=== PATIENT | male | born 1970 | race Caucasian/White ===

== ENCOUNTER → 2016-09-19 | Outpatient (CLI) | payer BC | END | disposition home or self-care (01) | LOC: LABWHC1 10:01 | PROVIDERS: ATTEND Urology | DX: E83.52 Hypercalcemia (principal) | CPT/HCPCS: 36415; 82310; 83970 ==

== ENCOUNTER 2021-08-18 11:45 | Day surgery (SDC) | payer BC ==
[2021-08-12 16:14] VITALS: BMI 34.7
--- NOTE | 2021-08-17 06:13 | P.GSHP ---
History of Present Illness H&P Date: 08/17/21 Chief Complaint: Right renal colic The patient is a 50-year-old white male with a history of urolithiasis. He recently presented with acute onset of right flank pain radiating to the right lower quadrant and right testicle. He denied dysuria and hematuria, but did experience nausea with vomiting. A CT scan showed a 7 mm right UPJ calculus. He was admitted to [facility] with intractable pain. He underwent right ureteral stent insertion on 08/10/2021. He now comes for cystoscopy, right ureteral stent removal, right ureteroscopy with Holmium laser lithotripsy and possible stone basketing. - Constitutional Constitutional: Denies chills, Denies fever - Gastrointestinal Gastrointestinal: Reports nausea, Reports vomiting - Genitourinary (Male) Genitourinary: Reports flank pain, Reports kidney stones Past Medical History Past Medical History: Diabetes Mellitus, Hyperlipidemia Additional Past Medical History / Comment(s): Current kidney stone. Hx kidney stones X2. History of Any Multi-Drug Resistant Organisms: None Reported Past Surgical History: Cholecystectomy, Orthopedic Surgery Additional Past Surgical History / Comment(s): Right knee arthroscopy. Past Anesthesia/Blood Transfusion Reactions: No Reported Reaction Past Psychological History: No Psychological Hx Reported Smoking Status: Never smoker Past Alcohol Use History: None Reported Past Drug Use History: None Reported - Past Family History Mother Family Medical History: No Reported History Medications and Allergies Home Medications Medication Instructions Recorded Confirmed Type metFORMIN HCL [Glucophage] 1,000 mg PO BID 01/17/15 08/12/21 History Atorvastatin [Lipitor] 40 mg PO HS 02/10/16 08/12/21 History Independence(Unknown Dose) 1 tab PO TID 02/10/16 08/12/21 History Dulaglutide [Trulicity] 3 mg SQ HIDALGO 08/12/21 08/12/21 History glipiZIDE [Glucotrol] 10 mg PO BID 08/12/21 08/12/21 History Allergies Allergy/AdvReac Type Severity Reaction Status Date / Time No Known Allergies Allergy Verified 08/12/21 16:14 Surgical - Exam - General well developed, well nourished, no distress - Neck no masses, trachea midline - Abdomen Abdomen: soft, tender (Mild right-sided tenderness), no masses, no guarding, no rigid, no rebound, no distended - Genitourinary normal penis with no external lesions, testicles non-tender - Psychiatric oriented to time, oriented to person, oriented to place, speech is normal, memory intact Results - Imaging CT scan - abdomen: report reviewed, image reviewed Assessment and Plan (1) Calculus of ureter Status: Acute Code(s): N20.1 - CALCULUS OF URETER SNOMED Code(s): 55385791 Plan: Cystoscopy, right ureteral stent removal, right ureteroscopy with Holmium laser lithotripsy and possible stone basketing. The procedure has been reviewed in detail with the patient. He is aware of potential risks, which include anesthesia, bleeding, infection, and ureteral injury.
[~2021-08-18 11:45] MED LIST: DEXAMETHASONE SOD PHOSPHATE 4 MG/ML 1 ML VIAL IV ONE; HYDROmorphone 0.5 MG/0.5 ML SYRINGE IVP PRN; LACTATED RINGERS 1,000 ML IV SCH; ONDANSETRON 4 MG/2 ML VIAL IVP ONE
--- NOTE | 2021-08-18 12:17 | XR ---
EXAMINATION TYPE: XR KUB DATE OF EXAM: 08/18/2021 Comparison: 02/10/2016 Clinical History: 50-year-old male Right kidney stone. Preoperative exam. Findings: Moderate stool within the right side of the colon. Cholecystectomy clips. Right-sided ureteral stent is in place. There is a 6 mm calcification in the left paramedian pelvis that could be within the bladder. Bowel c ontent largely obscures the right renal shadow. Nonobstructive bowel gas pattern. Impression: 1. Right ureteral stent. Bowel content largely obscures the right renal shadow. 2. A 6 mm calcification in the left paramedian pelvis could be a phlebolith or could be within the bl adder.
[2021-08-18 12:19] LABS: Glucose,Whole Blood 234 mg/dL (75-99)
[2021-08-18] MEDS ORDERED: LACTATED RINGERS 1,000 ML IV ONE (12:23)
[2021-08-18] MEDS ORDERED: MIDAZOLAM 2 MG/2 ML VIAL ONE (14:00)
[2021-08-18] MEDS ORDERED: fentaNYL (PF) 50 MCG/ML 2 ML AMP ONE (14:00)
[2021-08-18] MEDS ORDERED: LIDOCAINE 1% INJ 10MG/ML (20 ML MDV) ONE (14:00)
[2021-08-18] MEDS ORDERED: SUCCINYLCHOLINE CHLORIDE 100 MG/5 ML SYR IV ONE (14:00)
[2021-08-18] MEDS ORDERED: PROPOFOL 10 MG/ML 20 ML VIAL IV ONE (14:00)
[2021-08-18] MEDS ORDERED: IOPAMIDOL-370 50ML BTL MISCELLANE ONE (14:23)
[2021-08-18 15:14] VITALS: RESP 16; TEMP 96.8
--- NOTE | 2021-08-18 15:22 | P.OP ---
Date of Procedure: 08/18/21 Preoperative Diagnosis: Right ureteral calculus Postoperative Diagnosis: Same Procedure(s) Performed: Cystoscopy, bilateral retrograde pyelograms, right ureteral stent removal, right ureteroscopy with Holmium laser lithotripsy and stone basketing Anesthesia: JAYNA Surgeon: Jose F Palacios Estimated Blood Loss (ml): 0 IV fluids (ml): 600 Condition: stable Disposition: PACU Indications for Procedure: The patient is a 50-year-old white male with a history of urolithiasis. He recently presented with acute onset of right flank pain radiating to the right lower quadrant and right testicle. He denied dysuria and hematuria, but did experience nausea with vomiting. A CT scan showed a 7 mm right UPJ calculus. He was admitted to [facility] with intractable pain. He underwent right ureteral stent insertion on 08/10/2021. He now comes for cystoscopy, right ureteral stent removal, right ureteroscopy with Holmium laser lithotripsy and possible stone basketing. Operative Findings: Right mid-ureteral calculus, fragmented and removed completely. Description of Procedure: The patient was taken to the operating room and placed in the dorsolithotomy position, with legs supported in Gera stirrups. The external genitalia was prepped and draped sterilely. The 30 lens was used to introduce the 21-Greenlandic Mcleod cystoscopic sheath through the urethra and into the bladder under direct vision. The prostatic urethra showed evidence of mild lateral lobe enlargement. The bladder was examined in its entirety. The distal end of the right ureteral stent was visualized. The left ureteral orifice appeared normal. The bladder was unremarkable. The preoperative KUB x-ray suggested the presence of a left distal ureteral calculus. Therefore, a 6-Greenlandic open-ended catheter was advanced through the cystoscope and the left ureteral orifice was cannulated. Contrast was injected, and it was clear that the left pelvic calcification was medial to the ureter. Grasping forceps were used to grasp the distal end of the right ureteral stent, which was removed along with the cystoscope. A 0.035 inch Glidewire was passed through the stent and up to the right renal pelvis. The open-ended catheter was passed over the wire, into the right ureter, and contrast was injected demonstrating the calculus to be at the level of the iliac vessels. The open- ended catheter was removed, and the Posea flexible ureteroscope was advanced over the wire, up to the calculus. The Glidewire was removed, and the 200 micron Holmium laser probe was passed through the ureteroscope. Lithotripsy was performed using dusting settings, but the calculus fragmented. The vast majority of the fragments passed distally into the bladder. However, some fragments remained present within the distal ureter. No additional calculi were seen, and there was no evidence of ureteral trauma. The distal ureteral fragments were removed using a 1.9-Greenlandic nitinol basket. The ureteroscope was removed, and the cystoscope was replaced into the bladder. All calculus fragments were removed from the bladder, and after emptying the bladder the cystoscope was removed. The patient tolerated the procedure well and was taken to the recovery room in stable condition. [facility] [place] [facility] Report: Procedure Acuity: Elective Stone Size and Location: 6 mm, right mid ureter Ureteral Dilation: No Ureteral Access Sheath Used: No Stone Sent for Analysis: Yes All Stones/Fragments Were Removed with a Basket: Yes Complications: No Preoperative Antibiotics Given: Yes Stent Placed: No Discharge Medications: None
--- NOTE | 2021-08-18 15:37 | FL ---
Fluoroscopy HISTORY: Pain 12 seconds fluoroscopy time supplied to the referring clinician. 1 intraoperative C-arm images docum ent the procedure. See dictated report from urology.
[2021-08-18 16:11] VITALS: BP 114/78; PULSE 92
== END 2021-08-18 16:19 | disposition home or self-care (01) ==
LOC: OR 11:45
PROVIDERS: ATTEND Urology
DX: N20.1 Calculus of ureter (principal); E11.9 Type 2 diabetes mellitus without complications; E78.5 Hyperlipidemia, unspecified; Z87.442 Personal history of urinary calculi; Z90.49 Acquired absence of other specified parts of digestive tract; Z98.890 Other specified postprocedural states; Z79.84 Long term (current) use of oral hypoglycemic drugs; Z79.891 Long term (current) use of opiate analgesic; Z79.899 Other long term (current) drug therapy
CPT/HCPCS: 82365; 74420; 74018; 52353; C1769; C1758; J2250; J1100; J0690; J2405; J2001; J3010; J0330; J2704; Q9967